=== PATIENT | male | born 1975 | race Caucasian/White ===

== ENCOUNTER 2017-10-09 19:32 | Emergency (ER) | payer MEDICAID, OTHER ==
[~2017-10-09] VITALS: Ht 175.3 cm; Wt 86.2 kg
[2017-10-09] MEDS ORDERED: HYDR-3965 PO (21:03)
[2017-10-09] MEDS ORDERED: IBUP-1986 PO (21:03)
[2017-10-09] MEDS ORDERED: HYDROcodone/acetaminophen 5mg/325mg tablet PO ONE (21:05)
[2017-10-09 21:18] VITALS: BP 126/78
== END 2017-10-09 21:22 | disposition home or self-care (01) ==
LOC: ER 19:32
DX: S93.402A Sprain of unspecified ligament of left ankle, initial encounter (principal); V10.0XXA Pedal cycle driver injured in collision with pedestrian or animal in nontraffic accident, initial encounter; Y93.55 Activity, bike riding; Y92.413 State road as the place of occurrence of the external cause; Y99.9 Unspecified external cause status
CPT/HCPCS: 73610; 99284

== ENCOUNTER 2022-01-14 12:15 | Emergency (ER) | payer MEDICAID, OTHER ==
[~2022-01-14] VITALS: Ht 172.7 cm; Wt 95.5 kg
[~2022-01-14 12:15] MED LIST: IBUP-1986 PO
[2022-01-14 12:26] VITALS: BP 111/76
== END 2022-01-14 14:35 | disposition home or self-care (01) ==
LOC: ER 12:15
DX: S96.812A Strain of other specified muscles and tendons at ankle and foot level, left foot, initial encounter (principal); F12.90 Cannabis use, unspecified, uncomplicated; Z98.890 Other specified postprocedural states; Z79.899 Other long term (current) drug therapy; X50.1XXA Overexertion from prolonged static or awkward postures, initial encounter; Y93.89 Activity, other specified; Y92.89 Other specified places as the place of occurrence of the external cause; Y99.8 Other external cause status
CPT/HCPCS: 73610; 99284